=== PATIENT | female | born 1930 | race Caucasian/White ===

== ENCOUNTER 2018-09-01 07:40 | Emergency (ER) | payer BC, MEDICARE ==
[~2018-09-01] VITALS: Ht 157.5 cm; Wt 70.5 kg
[2018-09-01] MEDS ORDERED: hydrALAzine 20 MG/ML, 1ML IV ONE ×2 (08:30→09:30)
[2018-09-01] MEDS ORDERED: SODIUM CHLORIDE FLUSH 10ML SYR IVF ONE (08:30)
[2018-09-01] MEDS ORDERED: hydrALAzine 20 MG/ML, 1ML ONE ×2 (08:31→09:22)
[2018-09-01 08:37] LABS: BASOPHILS # (AUTO) 0.01 x10^3/uL (0-0.1); BASOPHILS % (AUTO) 0 % (0-1); EOSINOPHILS # (AUTO) 0.03 x10^3/uL (0-0.4); EOSINOPHILS % (AUTO) 1 % (1-7); LYMPHOCYTES # (AUTO) 1.26 x10^3/uL (1-3.4); LYMPHOCYTES % (AUTO) 38 % (22-44); MD NO; MEAN CORPUSCULAR HEMOGLOBIN 30.1 pg (27.0-34.8); MEAN CORPUSCULAR HGB CONC 33.5 g/dL (32.4-35.8); MEAN CORPUSCULAR VOLUME 89.7 fL (80-100); MEAN PLATELET VOLUME 7.6 fL (7.4-10.4); MONOCYTES # (AUTO) 0.24 x10^3/uL (0.2-0.8); MONOCYTES % (AUTO) 7 % (2-9); NEUTROPHILS # (AUTO) 1.74 x10^3/uL (1.8-6.8); NEUTROPHILS % (AUTO) 53 % (42-75); PLATELET COUNT 171 x10^3/uL (130-400); RED BLOOD COUNT 4.39 x10^6/uL (3.82-5.3); RED CELL DISTRIBUTION WIDTH 14.5 % (9.6-15.2)
[2018-09-01 08:49] LABS: ALANINE AMINOTRANSFERASE 16 U/L (12-78); ALBUMIN 3.3 g/dL (3.4-5.0); ANION GAP 9 mmol/L (5-15); CALCIUM 9.1 mg/dL (8.5-10.1); CHLORIDE 109 mmol/L (98-107); CREATININE 0.66 mg/dL (0.55-1.02); T4 (THYROXINE) 10.2 mcg/dL (4.8-13.9)
[2018-09-01] MEDS ORDERED: METO25TA35 PO (08:52)
[2018-09-01] MEDS ORDERED: METF500T17 PO (08:52)
[2018-09-01] MEDS ORDERED: LOSA100T7 PO (08:52)
[2018-09-01 08:53] LABS: ALKALINE PHOSPHATASE 118 U/L (45-117); BILIRUBIN,TOTAL 0.7 mg/dL (0.2-1.0); TOTAL PROTEIN 7.2 g/dL (6.4-8.2); TROPONIN I < 0.015 ng/mL (0.000-0.045)
[2018-09-01 12:09] VITALS: BP 159/83
== END 2018-09-01 12:12 | disposition home or self-care (01) ==
LOC: ED 09:48
DX: I10 Essential (primary) hypertension (principal)
CPT/HCPCS: 36415; 71045; 80053; 84436; 84443; 84484; 85025; 96374; 96376; 99285; J0360

== ENCOUNTER → 2018-12-15 | Outpatient (CLI) | payer MEDICARE, BC ==
[~2018-12-15] MED LIST: LOSA100T7 PO; METF500T17 PO; METO25TA35 PO; REGADENOSON 0.4 MG/5 ML SYRINGE ONE
== END | disposition home or self-care (01) ==
LOC: CVU 10:25
PROVIDERS: ATTEND Internal Medicine Cardiovascular Disease
DX: I08.3 Combined rheumatic disorders of mitral, aortic and tricuspid valves (principal); I11.9 Hypertensive heart disease without heart failure; R06.02 Shortness of breath; R01.1 Cardiac murmur, unspecified; R94.31 Abnormal electrocardiogram [ECG] [EKG]
CPT/HCPCS: 78452; 93017; 93306; A9502; J2785

== ENCOUNTER → 2018-12-24 | Outpatient (CLI) | payer MEDICARE, BC ==
[~2018-12-24] MED LIST changes: +ASPI81TA45 PO; +ATOR40TA78 PO; +CLON0.1T22 PO; +HYDR25TA6 PO; +LOSA100T14 PO; -LOSA100T7 PO; +METO-93 PO; -REGADENOSON 0.4 MG/5 ML SYRINGE ONE
[2018-12-24 15:38] LABS: BASOPHILS # (AUTO) 0.03 x10^3/uL (0-0.1); BASOPHILS % (AUTO) 1 % (0-1); EOSINOPHILS # (AUTO) 0.06 x10^3/uL (0-0.4); EOSINOPHILS % (AUTO) 1 % (1-7); LYMPHOCYTES # (AUTO) 2.22 x10^3/uL (1-3.4); LYMPHOCYTES % (AUTO) 44 % (22-44); MD NO; MEAN CORPUSCULAR HEMOGLOBIN 30.5 pg (27.0-34.8); MEAN CORPUSCULAR HGB CONC 33.5 g/dL (32.4-35.8); MEAN CORPUSCULAR VOLUME 91.1 fL (80-100); MEAN PLATELET VOLUME 8.2 fL (7.4-10.4); MONOCYTES # (AUTO) 0.29 x10^3/uL (0.2-0.8); MONOCYTES % (AUTO) 6 % (2-9); NEUTROPHILS % (AUTO) 49 % (42-75); PLATELET COUNT 237 x10^3/uL (130-400); RED BLOOD COUNT 4.66 x10^6/uL (3.82-5.3); RED CELL DISTRIBUTION WIDTH 13.6 % (9.6-15.2)
[2018-12-24 15:43] LABS: ANION GAP 6 mmol/L (5-15); CALCIUM 9.2 mg/dL (8.5-10.1); CHLORIDE 107 mmol/L (98-107); CREATININE 0.71 mg/dL (0.55-1.02)
== END | disposition home or self-care (01) ==
LOC: CFH 14:13
PROVIDERS: ATTEND Internal Medicine Cardiovascular Disease
DX: I10 Essential (primary) hypertension (principal); E11.9 Type 2 diabetes mellitus without complications; I49.1 Atrial premature depolarization; R94.31 Abnormal electrocardiogram [ECG] [EKG]
CPT/HCPCS: 36415; 80048; 85025

== ENCOUNTER 2018-12-28 09:22 | Day surgery (SDC) | payer MEDICARE, BC ==
[~2018-12-28] VITALS: Ht 165.1 cm; Wt 70.5 kg
[~2018-12-28 09:22] MED LIST changes: -ASPI81TA45 PO; -ATOR40TA78 PO; -CLON0.1T22 PO; -HYDR25TA6 PO; -METO-93 PO
[2018-12-28] MEDS ORDERED: SODIUM CHLORIDE 0.9% 1,000 ML IV SCH (10:04)
[2018-12-28 10:09] VITALS: BP 211/76
[2018-12-28] MEDS ORDERED: METF500T17 PO (10:20)
[2018-12-28] MEDS ORDERED: METO-93 PO (10:20)
[2018-12-28] MEDS ORDERED: CLON0.1T22 PO (10:20)
[2018-12-28] MEDS ORDERED: ASPI81TA45 PO (10:21)
[2018-12-28] MEDS ORDERED: HYDR25TA6 PO (10:21)
[2018-12-28] MEDS ORDERED: ATOR40TA78 PO (10:23)
[2018-12-28] MEDS ORDERED: FENTANYL PF 100 MCG/2ML ONE (11:31)
[2018-12-28] MEDS ORDERED: MIDAZOLAM 1 MG/ML, 5ML ONE (11:31)
[2018-12-28] MEDS ORDERED: LIDOCAINE 1%, 20ML ONE (11:31)
== END 2018-12-28 15:58 | disposition home or self-care (01) ==
LOC: CACL 09:22
PROVIDERS: ATTEND Internal Medicine Cardiovascular Disease
DX: I25.10 Atherosclerotic heart disease of native coronary artery without angina pectoris (principal); E11.9 Type 2 diabetes mellitus without complications; I10 Essential (primary) hypertension; I35.0 Nonrheumatic aortic (valve) stenosis; E78.00 Pure hypercholesterolemia, unspecified; Z88.1 Allergy status to other antibiotic agents; Z88.5 Allergy status to narcotic agent; Z88.8 Allergy status to other drugs, medicaments and biological substances; Z79.84 Long term (current) use of oral hypoglycemic drugs
CPT/HCPCS: 93454; 99156; C1769; C1894; J2250; J3010; J3490; Q9967

== ENCOUNTER → 2019-12-22 | Outpatient (CLI) | payer MEDICARE, BC ==
[~2019-12-22] MED LIST changes: +ASPI81TA45 PO; +ATOR40TA78 PO; +CLON0.1T22 PO; +HYDR25TA6 PO; +METO-93 PO
== END | disposition home or self-care (01) ==
LOC: CFH 12:49
PROVIDERS: ATTEND Internal Medicine Cardiovascular Disease
DX: I08.3 Combined rheumatic disorders of mitral, aortic and tricuspid valves (principal); E11.9 Type 2 diabetes mellitus without complications; I11.9 Hypertensive heart disease without heart failure
CPT/HCPCS: 93306